=== PATIENT | female | born 1985 | race Caucasian/White ===

== ENCOUNTER 2019-01-22 07:08 | Inpatient (IN) | payer OTHER ==
[2019-01-22] MEDS ORDERED: METHYLERGONOVINE MALEATE 0.2 MG/ML SOL IM PRN (08:04)
[2019-01-22] MEDS ORDERED: CARBOPROST 250 MCG/ML SOL IM PRN (08:04)
[2019-01-22] MEDS ORDERED: OXYTOCIN 10000 MU/ML SOL IM PRN (08:04)
[2019-01-22] MEDS ORDERED: MEPIVACAINE HCL 1% MPF 30 ML/VIAL SOL INFIL PRN (08:04)
[2019-01-22] MEDS ORDERED: LACTATED RINGERS 1,000 ML IV PRN (08:04)
[2019-01-22] MEDS ORDERED: FENTANYL 100MCG/2ML SOL IV PRN (08:04)
[2019-01-22] MEDS ORDERED: SODIUM CHLORIDE 0.9% FLUSH 10 ML SOL IV PRN (08:04)
[2019-01-22 08:21] LABS: BASOPHILS % (AUTO) 0 % (0-3); EOSINOPHILS % (AUTO) 2 % (0-9); HEMATOCRIT 36 % (35-47); LYMPHOCYTES % (AUTO) 17.1 % (10-50); MEAN CORPUSCULAR HEMOGLOBIN 31.3 pg (27.0-32.0); MEAN CORPUSCULAR VOLUME 95 fL (81-99); MONOCYTES % (AUTO) 7.9 % (0-12)
[2019-01-22] MEDS: SODIUM CHLORIDE 0.9% FLUSH 10 ML SOL IV SCH ×2 (09:27→17:27)
[2019-01-22] MEDS ORDERED: AMPICILLIN 1 GM PDS 2 GM in SODIUM CHLORIDE 0.9% 100 ML 100 ML IV SCH (10:30)
[2019-01-22] MEDS ORDERED: EPHEDRINE SULFATE 50 MG/ML SOL IV PRN (13:44)
[2019-01-22] MEDS ORDERED: DIPHENHYDRAMINE 50 MG/ML SOL IV PRN (13:44)
[2019-01-22] MEDS ORDERED: NALBUPHINE HCL 20 MG/ML SOL IV PRN (13:44)
[2019-01-22] MEDS ORDERED: NALOXONE HYDROCHLORIDE 0.4 MG/ML SOL IV PRN (13:44)
[2019-01-22] MEDS: LACTATED RINGERS 1,000 ML IV SCH ×3 (13:45→17:27)
[2019-01-22] MEDS ORDERED: AMPICILLIN 1 GM PDS ONE ×2 (14:58→18:34)
[2019-01-22] MEDS ORDERED: LIDOCAINE HCL 2% MPF 10 ML SOL ONE (14:59)
[2019-01-22] MEDS ORDERED: FENTANYL 250 MCG/ 5ML SOL ONE (14:59)
[2019-01-22] MEDS ORDERED: ROPIVACAINE HYDROCHLORIDE 5 MG/ML SOL ONE (15:00)
[2019-01-22] MEDS ORDERED: LIDOCAINE 1% W/EPI MPF 30 ML SOL ONE (15:00)
[2019-01-22] MEDS: AMPICILLIN 1 GM PDS 1 GM in SODIUM CHLORIDE 0.9% 100 ML 100 ML IV SCH ×2 (15:01→18:37)
[2019-01-22] MEDS ORDERED: ONDANSETRON HCL 4 MG/2 ML SOL ONE (18:23)
[2019-01-22] MEDS ORDERED: ONDANSETRON HCL 4 MG/2 ML SOL IV PRN (18:25)
[2019-01-22] MEDS ORDERED: TEMAZEPAM 15MG 15 MG CAP PO PRN (22:08)
[2019-01-22] MEDS ORDERED: METHYLERGONOVINE MALEATE 0.2 MG TAB PO PRN (22:08)
[2019-01-22] MEDS ORDERED: FLEET ENEMA PR PRN (22:08)
[2019-01-22] MEDS ORDERED: BISACODYL 10 MG SUP PR PRN (22:08)
[2019-01-22] MEDS ORDERED: BENZOCAINE/MENTHOL 1 SPR TOP PRN (22:08)
[2019-01-22] MEDS ORDERED: WITCH HAZEL 1 EA PAD TOP PRN (22:08)
[2019-01-22] MEDS ORDERED: APAP/HYDROCODONE 1 EACH TABLET PO PRN (22:08)
[2019-01-23] MEDS: LACTATED RINGERS 1,000 ML IV SCH (00:13)
[2019-01-23] MEDS: AMPICILLIN 1 GM PDS 1 GM in SODIUM CHLORIDE 0.9% 100 ML 100 ML IV SCH (00:13)
[2019-01-23] MEDS: SODIUM CHLORIDE 0.9% FLUSH 10 ML SOL IV SCH ×3 (05:47→17:24)
[2019-01-23] MEDS: IBUPROFEN 600 MG TAB PO PRN ×3 (05:47→20:55)
[2019-01-23] MEDS: FOLIC ACID 1 MG TAB PO SCH (10:19)
[2019-01-23] MEDS: DOCUSATE SODIUM 100 MG SGL PO SCH ×2 (10:19→20:54)
[2019-01-23] MEDS: MULTIVITAMIN2 1 EA TAB PO SCH (10:19)
[2019-01-23 21:12] VITALS: RESP 16
[2019-01-24 06:46] VITALS: BP 115/74; PULSE 89; TEMP 97.7; O2SAT 97
[2019-01-24] MEDS: IBUPROFEN 600 MG TAB PO PRN (07:12)
[2019-01-24] MEDS: FOLIC ACID 1 MG TAB PO SCH (10:02)
[2019-01-24] MEDS: DOCUSATE SODIUM 100 MG SGL PO SCH (10:02)
[2019-01-24] MEDS: MULTIVITAMIN2 1 EA TAB PO SCH (10:02)
== END 2019-01-24 12:30 | disposition home or self-care (01) | DRG 807 ==
LOC: OBSVTOIN 07:08 → OB 07:08
PROVIDERS: ADMIT Family Medicine; ATTEND Family Medicine
PROC: 3E04329 Introduction of Other Anti-infective into Central Vein, Percutaneous Approach (ICD-10-PCS; principal; 2019-01-22)
PROC: 10E0XZZ Delivery of Products of Conception, External Approach (ICD-10-PCS; 2019-01-22)
PROC: 0KQM0ZZ Repair Perineum Muscle, Open Approach (ICD-10-PCS; 2019-01-22)
PROC: 0U7C7ZZ Dilation of Cervix, Via Natural or Artificial Opening (ICD-10-PCS; 2019-01-22)
PROC: 6A550ZT Pheresis of Cord Blood Stem Cells, Single (ICD-10-PCS; 2019-01-22)
DX: O80 Encounter for full-term uncomplicated delivery (principal); Z37.0 Single live birth; Z3A.39 39 weeks gestation of pregnancy; O99.824 Streptococcus B carrier state complicating childbirth
CPT/HCPCS: 36415; 59025; 85018; 85025; 99070; J0290; J0670; J2405; J2590; J2795; J3010; A9270-GY